=== PATIENT | female | born 1975 | race Caucasian/White ===

== ENCOUNTER → 2020-07-07 14:30 | Outpatient (BNVA) | payer SELFPAY | PROVIDERS: Visit Provider Obstetrics & Gynecology | DX: Z12.4 Encounter for screening for malignant neoplasm of cervix (principal); N93.9 Abnormal uterine and vaginal bleeding, unspecified | CPT/HCPCS: 83001; 84443; 85025; 88175 ==

== ENCOUNTER → 2020-07-10 15:32 | Outpatient (BNVA) | payer SELFPAY | PROVIDERS: Visit Provider Obstetrics & Gynecology | DX: D25.0 Submucous leiomyoma of uterus (principal); N93.9 Abnormal uterine and vaginal bleeding, unspecified; N85.2 Hypertrophy of uterus; N83.01 Follicular cyst of right ovary | CPT/HCPCS: 76830 ==

== ENCOUNTER → 2020-08-19 15:02 | Outpatient (BNVA) | payer SELFPAY | PROVIDERS: Visit Provider Obstetrics & Gynecology | DX: D64.9 Anemia, unspecified (principal); N93.9 Abnormal uterine and vaginal bleeding, unspecified; D25.1 Intramural leiomyoma of uterus; D25.0 Submucous leiomyoma of uterus; D25.2 Subserosal leiomyoma of uterus | CPT/HCPCS: 85025 ==

== ENCOUNTER → 2020-09-10 13:49 | Outpatient (BNVA) | payer SELFPAY | PROVIDERS: Referring Provider Obstetrics & Gynecology; Visit Provider Internal Medicine | DX: D50.9 Iron deficiency anemia, unspecified (principal); D25.1 Intramural leiomyoma of uterus; N93.9 Abnormal uterine and vaginal bleeding, unspecified | CPT/HCPCS: 82607; 82746; 83550; 85025 ==

== ENCOUNTER 2020-09-26 12:33 | Outpatient (RCR) | payer SELFPAY ==
[2020-09-12 12:28] VITALS: BMI 36.4
[2020-09-12] MEDS: ferric carboxy (IVPB) 750 MG in sodium chloride 0.9% (100 ml) 100 ML 345 MG IV (12:48)
[2020-09-12 12:58] VITALS: BP 134/80; PULSE 88; RESP 18; TEMP 36.9; O2SAT 100
[2020-09-19] MEDS: ferric carboxy (IVPB) 750 MG in sodium chloride 0.9% (100 ml) 100 ML 345 MG IV (13:12)
[2020-09-19 13:22] VITALS: BP 138/71; PULSE 81; RESP 18; TEMP 37; O2SAT 100
[2020-09-26 12:46] VITALS: BP 149/83; PULSE 83; RESP 18; TEMP 36.4; O2SAT 100
[2020-09-26] MEDS: ferric carboxy (IVPB) 750 MG in sodium chloride 0.9% (100 ml) 100 ML 345 MG IV (13:19)
== END 2020-09-28 23:59 | disposition home or self-care (01) ==
LOC: OPS 12:33
PROVIDERS: Visit Provider Internal Medicine
DX: D50.9 Iron deficiency anemia, unspecified (principal)
CPT/HCPCS: 96365; J1439

== ENCOUNTER → 2020-10-08 15:40 | Outpatient (BNVA) | payer SELFPAY | PROVIDERS: Visit Provider Internal Medicine | DX: D50.9 Iron deficiency anemia, unspecified (principal); D25.1 Intramural leiomyoma of uterus; D25.0 Submucous leiomyoma of uterus; D25.2 Subserosal leiomyoma of uterus; N93.9 Abnormal uterine and vaginal bleeding, unspecified | CPT/HCPCS: 83550; 85025 ==

== ENCOUNTER 2020-10-10 12:30 | Outpatient (CLI) | payer SELFPAY ==
[2020-10-13 12:47] VITALS: BMI 35.5
[2020-10-13 13:02] LABS: Add Urine Microscopic? YES; Bilirubin Urine Neg (Negative); Blood Urine Trace (Negative); Glucose Urine UA Norm (Normal); Ketones Urine Negative (Negative); Leukocyte Esterase Urine Negative (Negative); Nitrate Urine Negative (Negative); Protein Urine Neg (Negative); Urine Appearance Clear (CLEAR); Urine Color Yellow (Yellow); Urobilinogen Urine Norm (Negative); pH Urine 5 (5-7)
[2020-10-13 13:11] LABS: OR HCG Qualitative Urine Negative (Negative)
[2020-10-13 13:17] LABS: Anion Gap 11.2 (5-19); Blood Urea Nitrogen 10 mg/dL (6-20); Calcium 8.7 mg/dL (8.5-10.5); Carbon Dioxide 24 mmol/L (22-29); Chloride 105 mmol/L (98-107); Glucose 92 mg/dL (65-115); Osmolality Calculated 281 mOsm/kg (285-295); Potassium 4.2 mmol/L (3.5-5.1); Sodium 136 mmol/L (136-145)
--- NOTE | 2020-10-13 13:24 | PC.NURSE ---
Pt voiced concern with staying r/t lack of transportation and no phone. Communicated to patient and spouse that may be able to stay because of the circumstances. Neighbor is able to relay messages to pt and spouse. Pt gave permission for staff to leave message with neighbor if needed. Note placed on chart.
--- NOTE | 2020-10-13 13:33 | ANES.PREANE2 ---
Pre-Anesthetic Assessment Pre-Anesthetic Assessment: Height/Weight: Height 1.68 m Weight 99.79 kg Proposed Procedure: Operation Date: 10/16/20 09:00 Proposed Procedures p Total Vaginal Hysterectomy 46065 N64.9 D25.9 N93.9(Not Applicable) - Yugn Ray MD Was Beta Bogdan taken within 24 hours: N/A Was Clonidine taken within 24 hours: N/A Social: Social History: No alcohol and No tobacco Exam: Pre-Anes Outpt Exam: alert, oriented x 3, clear to auscultation bilaterally and regular rate & rhythm Airway: Submandibular: WNL Cervical ROM: WNL MP: 2 Dentition: False CV/HEM: CV/HEM: Anemia Metabolic: Metabolic: Morbid obesity Anesthetic Plan: ASA status: 3 Anesthesia: General Risk of > 500 ml blood loss (7ml/kg in children): No PFSH Anesthesia PFSH: Medical History Abnormal uterine bleeding (AUB) Surgical History H/O tubal ligation S/P cholecystectomy S/P tonsillectomy Family History Father Diabetes Heart disease Mother Hypertension Stroke Denies family history of Colon cancer Ovarian cancer Clotting disorder Breast cancer Anesthesia complication Bleeding disorder Uterine cancer Thyroid condition Social History Smoking and tobacco status: never smoked Alcohol intake: never History of recent travel: No Data Anesthesia CBC & Chem 7: 10/13/20 12:30 10/13/20 12:30 Other Labs: Laboratory Results - last 48 hr 10/13/20 10/13/20 10/13/20 12:21 12:30 12:30 Sodium 136 Potassium 4.2 Chloride 105 Carbon Dioxide 24 Anion Gap 11.2 BUN 10 Creatinine 0.5 GFR Calculation 134.0 H Glucose 92 Calculated Osmolality 281 L Calcium 8.7 Urine Color Yellow Urine Appearance Clear Urine pH 5 Ur Specific [place] 1.010 Urine Protein Neg Urine Glucose (UA) Norm Urine Ketones Negative Urine Blood Trace H Urine Nitrate Negative Urine Bilirubin Neg Urine Urobilinogen Norm Ur Leukocyte Esterase Negative Amorphous Sediment Not Reportable Urine HCG, Qual Negative Cardiac Studies: No Data to Display
[2020-10-13 13:53] LABS: Bacteria Urine TRACE /hpf; RBC Urine 0-4 /hpf (0-2); Squamous Epithelial Cell Urine 0-4 /hpf (0-5); WBC Urine 0-4 /hpf (0-5)
[2020-10-14 16:15] LABS: Coronavirus Test Green County Detected
== END 2020-10-10 15:00 | disposition home or self-care (01) ==
LOC: OPS 06-01 15:37
PROVIDERS: Visit Provider Obstetrics & Gynecology
DX: N93.9 Abnormal uterine and vaginal bleeding, unspecified (principal); D50.0 Iron deficiency anemia secondary to blood loss (chronic); D25.1 Intramural leiomyoma of uterus; D25.0 Submucous leiomyoma of uterus; D25.2 Subserosal leiomyoma of uterus; Z20.822 Contact with and (suspected) exposure to COVID-19
CPT/HCPCS: 80048; 81001; 84703; 86850; 86900; 87635

== ENCOUNTER 2020-11-08 01:28 | Observation (INO) | payer SELFPAY ==
[2020-11-08] VITALS (52 sets, daily range): BP systolic 105–159; BP diastolic 59–103; PULSE 64–123; RESP 4–42; TEMP 36.6–37.4; O2SAT 96–100; BMI 35.5
--- NOTE | 2020-11-08 01:40 | ECG_ITS ---
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 Measurements Intervals [place] Rate: 92 P: 50 SC: 172 QRS: 0 QRSD: 82 T: 9 QT: 350 QTc: 434 Interpretive Statements SINUS RHYTHM No previous ECG available for comparison Electronically Signed On 11-09-2020 15:34:25 CDT by Hola Starr M.D. [id number]
[2020-11-08 01:49] LABS: Basophils # 0.1 10^3/uL (0.0-0.1); Basophils % 0.4 %; Eosinophils # 0.2 10^3/uL (0.0-0.8); Eosinophils % 1.3 %; Hematocrit 36.3 % (37.0-47.0); Hemoglobin 11.4 g/dL (11.5-15.3); Lymphocytes # 1.9 10^3/uL (0.8-4.8); Lymphocytes % 13.1 %; Mean Corpuscular HGB Conc 31.4 g/dL (30.0-36.0); Mean Corpuscular Hemoglobin 29.3 pg (28.0-34.0); Mean Corpuscular Volume 93.3 fL (81-99); Mean Platelet Volume 10.4 fL (7.4-10.4); Monocytes # 0.7 10^3/uL (0.2-0.9); Monocytes % 5.1 %; Neutrophils # 11.36 10^3/uL (1.8-7.7); Neutrophils % 79.8 %; Nucleated Red Blood Cells % 0 %; Platelet Count 207 10^3/cmm (130-400); Red Blood Count 3.89 10^6/uL (4.1-5.3); Red Cell Distribution Width 18.3 % (12.1-15.1); White Blood Count 14.2 10^3/uL (4.0-10.0)
--- NOTE | 2020-11-08 02:15 | W.ED.FEMALGU ---
HPI - Female Genitourinary General: Chief complaint: Vaginal Bleeding Stated complaint: heavy vaginal bleeding Time Seen by Provider: 11/08/20 01:29 History of Present Illness: HPI Narrative: 45-year-old female with a history of uterine fibroid and heavy vaginal bleeding presents with brisk vaginal bleeding over the past 6 hours. She is passing clots, and not feeling well. She has some pelvic pain. No fever. No vomiting. Feels faint. MD elicited complaint: vaginal bleeding Pertinent past history: other Onset (ago): hour(s) (6) Location of symptoms: pelvis Female Urogenital Radiation: Non-Radiating Quality of pain: cramping Consistency: constant Vaginal discharge: none Vaginal bleeding: heavy, dark red and clots Relieving factors: none Associated symptoms: Reports abdominal pain, nausea and vaginal bleeding; Deny fevers/chills, headache(s) or vaginal discharge Treatment prior to arrival: none Sexual activity: Yes Patient : No (By history) Review of Systems Const: Reports: chills; Denies: fever(s) Eyes: Denies: change in vision ENMT: Denies: throat pain or epistaxis Card: Denies: chest pain or palpitations Resp: Denies: dyspnea, productive cough or wheezing GI: Reports: abdominal pain and nausea : Denies: vaginal discharge Musc: Reports: back pain (Lower) Neuro: Reports: dizziness; Denies: headache(s) or confusion PFSH ED PFSH: Medical History Abnormal uterine bleeding (AUB) Surgical History H/O tubal ligation S/P cholecystectomy S/P tonsillectomy Family History Father Diabetes Heart disease Mother Hypertension Stroke Denies family history of Colon cancer Ovarian cancer Clotting disorder Breast cancer Anesthesia complication Bleeding disorder Uterine cancer Thyroid condition Social History Smoking and tobacco status: never smoked Alcohol intake: never History of recent travel: No Physical Exam Const: GENERAL APPEARANCE: cooperative, in distress, ill appearing and diaphoretic NUTRITIONAL APPEARANCE: overweight ORIENTATION/CONSCIOUSNESS: Yes awake, Yes oriented to person, Yes oriented to place and Yes oriented to time HENMT: COMMON NORMALS: normocephalic HEAD & SCALP: normocephalic Eye: COMMON NORMALS: Equal, round and reactive pupils present and EOMs intact bilaterally PUPIL: Yes Equal, round and reactive pupils present Chest: COMMONS NORMALS: normal inspection of the chest Resp: COMMON NORMALS: normal respiratory effort, No use of accessory muscles and clear to auscultation bilaterally AUSCULTATION: clear to auscultation bilaterally Cardio: COMMON NORMALS: regular rhythm RATE: tachycardic RHYTHM: regular rhythm HEART SOUNDS: Murmur heart sound present (flow) : EXTERNAL FEMALE EXAM: Yes normal appearance of the urethra SPECULUM EXAM - VAGINA: No erythematous, Yes vaginal bleeding and No tissue present in vagina SPECULUM EXAM - CERVIX: Yes Cervical os closed and Yes Cervical bleeding (brisk) OB/EXTERNAL & SPECULUM: vaginal bleeding; no tissue noted in vagina OTHER: Palpable mass in the anterior pelvic wall Neuro: SENSORIUM/ORIENTATION: Yes oriented to person, Yes oriented to place and Yes oriented to time Course Consultations: Consultation #1: Guillermo Time: 02:10 Vital Signs: Vital signs: Vital Signs Temperature 98.5 F 11/08/20 01:48 Pulse Rate 104 H 11/08/20 03:30 Respiratory Rate 18 11/08/20 02:30 Blood Pressure 138/103 11/08/20 03:30 Pulse Oximetry 98 11/08/20 03:30 MDM - Female MDM Narrative: Medical decision making narrative: 45-year-old female with a history of heavy vaginal bleeding and uterine fibroids. She presents with a heart rate of 130, pale, and somewhat diaphoretic. She is ill-appearing. He has tenderness in her pelvis diffusely. Speculum exam reveals mildly brisk cervical bleeding. 1 unit of uncrossed match blood is ordered and infused along with 2 L of saline. Heart rate now down to 93. Blood pressure 143/90. Her color is improved. She continues to bleed. We consulted gynecology. The plan is oral Provera plus tranexamic acid IV infusion, and repeat hemoglobin in 2 hours. The rest of her labs are pending. 0330: Patient received tranexamic acid and Provera. She continues to bleed vaginally. Old looking blood with clots. She has had about 500 mL estimated total out, quantified by weighing checks pads. She has had about 1700 mL of IV fluid, and 1 unit of packed red cells. Her heart rate remains in the 100s. Blood pressure 130s over 90s. She feels better. Repeat hemoglobin is stable despite the above. She will go to the ICU for close observation, and repeat hemoglobin in a couple of hours. Lab Data: Labs: Lab Results 11/08/20 11/08/20 11/08/20 Range/Units 01:40 01:40 01:40 WBC 14.2 H (4.0-10.0) 10^3/ uL RBC 3.89 L (4.1-5.3) 10^6/u L Hgb 11.4 L (11.5-15.3) g/dL Hct 36.3 L (37.0-47.0) % MCV 93.3 (81-99) fL MCH 29.3 (28.0-34.0) pg MCHC 31.4 (30.0-36.0) g/dL RDW 18.3 H (12.1-15.1) % Plt Count 207 (130-400) 10^3/c mm MPV 10.4 (7.4-10.4) fL Neut % (Auto) 79.8 % Lymph % (Auto) 13.1 % [place] % (Auto) 5.1 % Eos % (Auto) 1.3 % Baso % (Auto) 0.4 % Neut # (Auto) 11.36 H (1.8-7.7) 10^3/u L Lymph # (Auto) 1.9 (0.8-4.8) 10^3/u L [place] # (Auto) 0.7 (0.2-0.9) 10^3/u L Eos # (Auto) 0.2 (0.0-0.8) 10^3/u L Baso # (Auto) 0.1 (0.0-0.1) 10^3/u L Nucleated RBC % (a uto) 0 % Nucleated RBCs # 0.0 /100WBC PT 14.20 (12.1-14.9) SECO NDS INR 1.07 (0.8-1.2) APTT 28.4 (23.9-36.7) SECO NDS Sodium 137 (136-145) mmol/L Potassium 4.0 (3.5-5.1) mmol/L Chloride 105 (98-107) mmol/L Carbon Dioxide 21 L (22-29) mmol/L Anion Gap 15.0 (5-19) BUN 8 (6-20) mg/dL Creatinine 0.6 (0.5-0.9) mg/dL GFR Calculation 108.6 (90-130) mL/min Glucose 155 H (65-115) mg/dL Calculated Osmolal ity 285 (285-295) mOsm/k g Lactate (0.5-2.2) mmol/L Calcium 8.2 L (8.5-10.5) mg/dL Total Bilirubin 0.2 (0.15-1.2) mg/dL AST 20 (0-32) U/L ALT 22 (0-33) U/L Alkaline Phosphata se 49 (35-105) IU/L C-Reactive Protein 0.8 (0.0-4.9) mg/L Total Protein 6.4 L (6.6-8.7) g/dL Albumin 3.6 (3.5-5.2) g/dL Globulin 2.8 (1.3-4.6) g/dL HCG, Qual (Negative) Blood Type Rho(D) Type Antibody Screen Crossmatch 11/08/20 11/08/20 11/08/20 Range/Units 01:40 01:40 01:40 WBC (4.0-10.0) 10^3/ uL RBC (4.1-5.3) 10^6/u L Hgb (11.5-15.3) g/dL Hct (37.0-47.0) % MCV (81-99) fL MCH (28.0-34.0) pg MCHC (30.0-36.0) g/dL RDW (12.1-15.1) % Plt Count (130-400) 10^3/c mm MPV (7.4-10.4) fL Neut % (Auto) % Lymph % (Auto) % [place] % (Auto) % Eos % (Auto) % Baso % (Auto) % Neut # (Auto) (1.8-7.7) 10^3/u L Lymph # (Auto) (0.8-4.8) 10^3/u L [place] # (Auto) (0.2-0.9) 10^3/u L Eos # (Auto) (0.0-0.8) 10^3/u L Baso # (Auto) (0.0-0.1) 10^3/u L Nucleated RBC % (a uto) % Nucleated RBCs # /100WBC PT (12.1-14.9) SECO NDS INR (0.8-1.2) APTT (23.9-36.7) SECO NDS Sodium (136-145) mmol/L Potassium (3.5-5.1) mmol/L Chloride (98-107) mmol/L Carbon Dioxide (22-29) mmol/L Anion Gap (5-19) BUN (6-20) mg/dL Creatinine (0.5-0.9) mg/dL GFR Calculation (90-130) mL/min Glucose (65-115) mg/dL Calculated Osmolal ity (285-295) mOsm/k g Lactate 3.2 H (0.5-2.2) mmol/L Calcium (8.5-10.5) mg/dL Total Bilirubin (0.15-1.2) mg/dL AST (0-32) U/L ALT (0-33) U/L Alkaline Phosphata se (35-105) IU/L C-Reactive Protein (0.0-4.9) mg/L Total Protein (6.6-8.7) g/dL Albumin (3.5-5.2) g/dL Globulin (1.3-4.6) g/dL HCG, Qual Negative (Negative) Blood Type A Positive Rho(D) Type Positive / 4+ Antibody Screen Negative Crossmatch See Detail 11/08/20 Range/Units 03:19 WBC 13.1 H (4.0-10.0) 10^3/ uL RBC 3.96 L (4.1-5.3) 10^6/u L Hgb 11.4 L (11.5-15.3) g/dL Hct 36.2 L (37.0-47.0) % MCV 91.4 (81-99) fL MCH 28.8 (28.0-34.0) pg MCHC 31.5 (30.0-36.0) g/dL RDW 17.5 H (12.1-15.1) % Plt Count 184 (130-400) 10^3/c mm MPV 9.9 (7.4-10.4) fL Neut % (Auto) 86.1 % Lymph % (Auto) 9.9 % [place] % (Auto) 3.4 % Eos % (Auto) 0.2 % Baso % (Auto) 0.2 % Neut # (Auto) 11.26 H (1.8-7.7) 10^3/u L Lymph # (Auto) 1.3 (0.8-4.8) 10^3/u L [place] # (Auto) 0.5 (0.2-0.9) 10^3/u L Eos # (Auto) 0.0 (0.0-0.8) 10^3/u L Baso # (Auto) 0.0 (0.0-0.1) 10^3/u L Nucleated RBC % (a uto) 0 % Nucleated RBCs # 0.0 /100WBC PT (12.1-14.9) SECO NDS INR (0.8-1.2) APTT (23.9-36.7) SECO NDS Sodium (136-145) mmol/L Potassium (3.5-5.1) mmol/L Chloride (98-107) mmol/L Carbon Dioxide (22-29) mmol/L Anion Gap (5-19) BUN (6-20) mg/dL Creatinine (0.5-0.9) mg/dL GFR Calculation (90-130) mL/min Glucose (65-115) mg/dL Calculated Osmolal ity (285-295) mOsm/k g Lactate (0.5-2.2) mmol/L Calcium (8.5-10.5) mg/dL Total Bilirubin (0.15-1.2) mg/dL AST (0-32) U/L ALT (0-33) U/L Alkaline Phosphata se (35-105) IU/L C-Reactive Protein (0.0-4.9) mg/L Total Protein (6.6-8.7) g/dL Albumin (3.5-5.2) g/dL Globulin (1.3-4.6) g/dL HCG, Qual (Negative) Blood Type Rho(D) Type Antibody Screen Crossmatch Critical Care Time Critical Care Time: Critical Care Time: Yes Total Critical Care Time: 40 Attestation: This case had a high probability of a clinically significant, sudden, or life threatening deterioration of this patient's condition which required my full and direct attention, intervention and personal management. 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
[2020-11-08 02:17] LABS: INR 1.07 (0.8-1.2)
[2020-11-08 02:18] LABS: Partial Thromboplastin Time 28.4 SECONDS (23.9-36.7)
[2020-11-08] MEDS: medroxyprogesterone 2.5 mg Tablet 10 MG PO (02:20)
[2020-11-08] MEDS: sodium chloride 0.9% 1,000 ML 999 ML IV ×3 (02:22→15:58)
[2020-11-08 02:24] LABS: HCG, Serum Qual Negative (Negative)
[2020-11-08 02:27] LABS: Alanine Aminotransferase 22 U/L (0-33); Albumin Level 3.6 g/dL (3.5-5.2); Alkaline Phosphatase 49 IU/L (35-105); Aspartate Amino Transferase 20 U/L (0-32); Blood Urea Nitrogen 8 mg/dL (6-20); C Reactive Protein 0.8 mg/L (0.0-4.9); Calcium 8.2 mg/dL (8.5-10.5); Carbon Dioxide 21 mmol/L (22-29); Chloride 105 mmol/L (98-107); Globulin 2.8 g/dL (1.3-4.6); Glomerular Filtration Rate 108.6 mL/min (90-130); Glucose 155 mg/dL (65-115); Osmolality Calculated 285 mOsm/kg (285-295); Sodium 137 mmol/L (136-145); Total Bilirubin 0.2 mg/dL (0.15-1.2); Total Protein 6.4 g/dL (6.6-8.7)
[2020-11-08 02:28] LABS: Lactate (Lactic Acid level) 3.2 mmol/L (0.5-2.2)
[2020-11-08 03:25] LABS: Basophils % 0.2 %; Eosinophils % 0.2 %; Hematocrit 36.2 % (37.0-47.0); Hemoglobin 11.4 g/dL (11.5-15.3); Lymphocytes # 1.3 10^3/uL (0.8-4.8); Lymphocytes % 9.9 %; Mean Corpuscular HGB Conc 31.5 g/dL (30.0-36.0); Mean Corpuscular Hemoglobin 28.8 pg (28.0-34.0); Mean Corpuscular Volume 91.4 fL (81-99); Mean Platelet Volume 9.9 fL (7.4-10.4); Monocytes # 0.5 10^3/uL (0.2-0.9); Monocytes % 3.4 %; Neutrophils # 11.26 10^3/uL (1.8-7.7); Neutrophils % 86.1 %; Nucleated Red Blood Cells % 0 %; Platelet Count 184 10^3/cmm (130-400); Red Blood Count 3.96 10^6/uL (4.1-5.3); Red Cell Distribution Width 17.5 % (12.1-15.1); White Blood Count 13.1 10^3/uL (4.0-10.0)
[2020-11-08] MEDS: sodium chloride 0.9% 1,000 ML 150 ML IV ×2 (04:47→10:03)
[2020-11-08 05:41] LABS: Basophils % 0.4 %; Eosinophils % 0.1 %; Hematocrit 34.9 % (37.0-47.0); Hemoglobin 11.1 g/dL (11.5-15.3); Lymphocytes # 1.4 10^3/uL (0.8-4.8); Mean Corpuscular HGB Conc 31.8 g/dL (30.0-36.0); Mean Corpuscular Hemoglobin 29.3 pg (28.0-34.0); Mean Corpuscular Volume 92.1 fL (81-99); Mean Platelet Volume 10.7 fL (7.4-10.4); Monocytes # 0.4 10^3/uL (0.2-0.9); Monocytes % 3.4 %; Neutrophils # 8.79 10^3/uL (1.8-7.7); Neutrophils % 82.7 %; Nucleated Red Blood Cells % 0 %; Platelet Count 191 10^3/cmm (130-400); Red Blood Count 3.79 10^6/uL (4.1-5.3); Red Cell Distribution Width 17.6 % (12.1-15.1); White Blood Count 10.6 10^3/uL (4.0-10.0)
--- NOTE | 2020-11-08 09:43 | PC.NURSE ---
up to bedside commode voided 400 urine noted bloody but no clots noted at this time had soft bm noted . Was very weak when up blood pressure ok at this time
--- NOTE | 2020-11-08 11:32 | PC.NURSE ---
Dr banda and vag exam done at this time
--- NOTE | 2020-11-08 11:34 | PM.HP ---
Providers/Chief Complaint Admitting Physician: Cindi Koehler MD Chief Complaint: heavy vaginal bleeding History of Present Illness Pia Zamudio is a 45 year old female with known fibroids and anemia who presents to the ER with complaints of heavy vaginal bleeding. She was scheduled for a total vaginal hysterectomy, but was Covid positive and her surgery was cancelled and rescheduled. She has been very anemic in the past and has received iron infusions to get her ready for surgery. Today she is bleeding extremely heavily. She is pale and light headed. She is laying prone in the bed. When she stands up, she becomes dizzy and the blood flows freely. Her most recent ultrasound showed a 14 week uterus with many fibroids. She is not currently on anything to prevent her from bleeding. She does have a remote history of DVT. The patient has received a blood transfusion, a single dose of provera 10 mg PO and one IV dose of tranexamic acid early this morning. Review of Systems General: Reports: 10 or more systems reviewed and unremarkable except in HPI and below Medications/Allergies Home Medications Medication Instructions Recorded Confirmed Last Taken Type cinnamon bark [Cinnamon] 500 mg PO DAILY PRN 11/08/20 11/08/20 Unknown History ibuprofen 400 mg PO Q8H PRN 11/08/20 11/08/20 Unknown History multivitamin 1 tab PO DAILY 11/08/20 11/08/20 Unknown History Allergies Allergy/AdvReac Type Severity Reaction Status Date / Time No Known Allergies Allergy Verified 11/08/20 01:54 PFSH Acute PFSH: Medical History Abnormal uterine bleeding (AUB) Surgical History H/O tubal ligation S/P cholecystectomy S/P tonsillectomy Family History Father Diabetes Heart disease Mother Hypertension Stroke Denies family history of Colon cancer Ovarian cancer Clotting disorder Breast cancer Anesthesia complication Bleeding disorder Uterine cancer Thyroid condition Social History Smoking and tobacco status: never smoked Alcohol intake: never History of recent travel: No Vitals/I&O/Wt Last Vital Signs Temp 99.4 F 11/08/20 05:00 Pulse 92 11/08/20 11:00 Resp 17 11/08/20 11:00 BP 133/84 11/08/20 11:00 Pulse Ox 99 11/08/20 11:00 11/07/20 11/08/20 11/08/20 22:59 06:59 14:59 Intake Total 1350 / 1350 790 / 790 Output Total 1180 / 1180 1340 / 1340 Balance 170 / 170 -550 / -550 Weight last 48 hrs Weight 223 lb 11.2 oz Weight 220 lb Physical Exam Const: GENERAL APPEARANCE: ill appearing and appears older than stated age NUTRITIONAL APPEARANCE: obese ORIENTATION/CONSCIOUSNESS: Yes awake, Yes oriented to person, Yes oriented to place and Yes oriented to time Resp: COMMON NORMALS: normal respiratory effort and No retractions EFFORT & INSPECTION: Yes able to speak in complete sentences GI: COMMON NORMALS: Soft to palpation and non-tender : COMMON NORMALS: Yes normal external appearance, Yes normal appearance of the vagina and Yes normal appearance of the cervix SPECULUM EXAM - VAGINA: Yes vaginal bleeding Amount: large/heavy and with clots SPECULUM EXAM - CERVIX: Yes Cervical os closed BIMANUAL EXAM - VAGINA & UTERUS: Yes other (limited by body habitus) Extremity: COMMON NORMALS: normal to inspection, full ROM and no clubbing, cyanosis or edema Psych: COMMON NORMALS: mental status grossly normal, Normal thought process present, cooperative, normal affect and speech normal ATTITUDE: Yes calm ACTIVITY/MOTOR BEHAVIOR: Yes appropriate eye contact SPEECH: Yes normal speech Skin: GENERAL SKIN EXAM: pallor HAIR: normal Data : 11/08/20 05:20 11/08/20 01:40 A&P Assessment and plan (1) Abnormal uterine bleeding: The patient reports that her bleeding had improved and now, she has started bleeding heavily again. plan to give two doses of tranexamic acid IV and a dose of depo provera IM to see if the bleeding can be controlled. If not, I will have to perform a D&C to control the bleeding. The plan is to get her bleeding under control in order for her to have her hysterectomy next month, as planned. Status: Acute (2) Uterine hemorrhage: Status: Acute (3) Uterine leiomyoma: Status: Acute Qualifiers: Uterine leiomyoma location: intramural, submucous, and subserous Qualified Code(s): D25.1 - Intramural leiomyoma of uterus; D25.0 - Submucous leiomyoma of uterus; D25.2 - Subserosal leiomyoma of uterus Attestations Medical Necessity Statement*: I anticipate that the patient will only be here one midnight as she was admitted early this morning. Time Spent in Patient Care: Greater than 35 minutes (>than 50% of time spent in counselling and/or direct pt care on unit). Coding Level of Care Code Acute [facility] Abnormal uterine bleeding N93.9 Uterine hemorrhage N93.9 Uterine leiomyoma D25.1; D25.0; D25.2 Uterine leiomyoma location: intramural, submucous, and subserous
[2020-11-08] MEDS: medroxyprogesterone 150 mg/ml SDV 1 mL IM (11:56)
--- NOTE | 2020-11-08 12:45 | PC.NURSE ---
voided large amt of urine noted bright red blood content to urine .. remains weak and pale at this time ...
[2020-11-08 15:17] LABS: Hematocrit 31.8 % (37.0-47.0); Hemoglobin 10.1 g/dL (11.5-15.3)
--- NOTE | 2020-11-08 15:37 | P.PN_ITS ---
Subjective Subjective: Interval history: The patient has received two doses of tranexamic acid and 150 mg of depo provera. Her bleeding is still profuse. She gushes each time that she gets up to use the bathroom. She remains dizzy with ambulation and needs nurse assistance. She also becomes tachycardic. I have spoken with the patient and her and I will take her for a dilation and curettage. They agree with the plan Medications: Reviewed: Yes Vitals/I&O/Wt Last Vital Signs Temp 99.4 F 11/08/20 05:00 Pulse 94 11/08/20 15:11 Resp 15 11/08/20 14:00 BP 106/77 11/08/20 14:00 Pulse Ox 99 11/08/20 14:00 11/08/20 11/08/20 11/08/20 06:59 14:59 22:59 Intake Total 1350 / 1350 1010 / 1010 Output Total 1180 / 1180 3440 / 3440 135 / 3575 Balance 170 / 170 -2430 / -2430 -135 / -2565 Weight last 48 hrs Weight 223 lb 11.2 oz Weight 220 lb Physical Exam Const: COMMON NORMALS: average body habitus and patient oriented x3 GENERAL APPEARANCE: cooperative, lethargic, ill appearing and appears older than stated age ORIENTATION/CONSCIOUSNESS: Yes awake, Yes oriented to person, Yes oriented to place, Yes oriented to time and Yes lethargic Neck/C-Spine: COMMON NORMALS: supple GENERAL: Yes normal visual inspection Resp: COMMON NORMALS: normal respiratory effort, No retractions and clear to auscultation bilaterally AUSCULTATION: clear to auscultation bilaterally Cardio: COMMON NORMALS: regular rate and regular rhythm RATE: regular rate RHYTHM: regular rhythm GI: COMMON NORMALS: Soft to palpation and non-tender INSPECTION: Yes normal to inspection PALPATION: Yes Soft to palpation : COMMON NORMALS: Yes normal external appearance, Yes normal appearance of the vagina and Yes normal appearance of the cervix SPECULUM EXAM - VAGINA: Yes vaginal bleeding OB/EXTERNAL & SPECULUM: vaginal bleeding Extremity: COMMON NORMALS: no clubbing, cyanosis or edema Neuro: COMMON NORMALS: patient oriented x3 SENSORIUM/ORIENTATION: Yes oriented to person, Yes oriented to place, Yes oriented to time and Yes lethargic Data : 11/08/20 15:09 11/08/20 01:40 Attestations Medical Necessity Statement*: The patient has been admitted as OPO Coding Level of Care Code Acute Energy Conservation Specialist for Burton Holcomb
--- NOTE | 2020-11-08 15:42 | ANES.PREANE2 ---
Pre-Anesthetic Assessment Pre-Anesthetic Assessment: Height/Weight: Height 1.68 m Weight 101.469 kg Temp Pulse Resp BP Pulse Ox 99.4 F 94 15 106/77 99 11/08/20 05:00 11/08/20 15:11 11/08/20 14:00 11/08/20 14:00 11/08/20 14:00 Preop Diagnosis: D & C Proposed Procedure: Operation Date: 11/08/20 16:00 Proposed Procedures p Dilation And Curettage (D&C)(Not Applicable) - Cindi Koehler MD Familial anesthetic complications: None Was Beta Bogdan taken within 24 hours: N/A Was Clonidine taken within 24 hours: N/A Last intake: NPO > 8 hrs, but ice chips at [id number] Social: Social History: No alcohol and No tobacco Exam: Pre-Anes Outpt Exam: alert, oriented x 3, clear to auscultation bilaterally and regular rate & rhythm Airway: Cervical ROM: WNL MP: 4 Dentition: False CV/HEM: CV/HEM: Anemia Metabolic: Metabolic: Morbid obesity Anesthetic Plan: ASA status: 2E Anesthesia: MAC Risk of > 500 ml blood loss (7ml/kg in children): No Other Pertinent Information: possible hysterectomy Meds/Allergies Current Medications: Current Medications Generic Name Dose Route Start Last Admin Trade Name Freq PRN Reason Stop Dose Admin Sodium Chloride 1,000 mls @ 150 m ls/hr 11/08/20 04:29 11/08/20 10:03 Sodium Chloride 0.9% IV 150 mls/hr .[id number] JUANCARLOS Administration PFSH Anesthesia PFSH: Medical History Abnormal uterine bleeding (AUB) Surgical History H/O tubal ligation S/P cholecystectomy S/P tonsillectomy Family History Father Diabetes Heart disease Mother Hypertension Stroke Denies family history of Colon cancer Ovarian cancer Clotting disorder Breast cancer Anesthesia complication Bleeding disorder Uterine cancer Thyroid condition Social History Smoking and tobacco status: never smoked Alcohol intake: never History of recent travel: No Data Anesthesia CBC & Chem 7: 11/08/20 15:09 11/08/20 01:40 Other Labs: Laboratory Results - last 48 hr 11/08/20 11/08/20 11/08/20 01:40 01:40 01:40 WBC 14.2 H RBC 3.89 L Hgb 11.4 L Hct 36.3 L MCV 93.3 MCH 29.3 MCHC 31.4 RDW 18.3 H Plt Count 207 MPV 10.4 Neut % (Auto) 79.8 Lymph % (Auto) 13.1 [place] % (Auto) 5.1 Eos % (Auto) 1.3 Baso % (Auto) 0.4 Neut # (Auto) 11.36 H Lymph # (Auto) 1.9 [place] # (Auto) 0.7 Eos # (Auto) 0.2 Baso # (Auto) 0.1 Nucleated RBC % (auto) 0 Nucleated RBCs # 0.0 PT 14.20 INR 1.07 APTT 28.4 Sodium 137 Potassium 4.0 Chloride 105 Carbon Dioxide 21 L Anion Gap 15.0 BUN 8 Creatinine 0.6 GFR Calculation 108.6 Glucose 155 H Calculated Osmolality 285 Lactate Calcium 8.2 L Total Bilirubin 0.2 AST 20 ALT 22 Alkaline Phosphatase 49 C-Reactive Protein 0.8 Total Protein 6.4 L Albumin 3.6 Globulin 2.8 HCG, Qual Blood Type Rho(D) Type Antibody Screen Crossmatch 11/08/20 11/08/20 11/08/20 01:40 01:40 01:40 WBC RBC Hgb Hct MCV MCH MCHC RDW Plt Count MPV Neut % (Auto) Lymph % (Auto) [place] % (Auto) Eos % (Auto) Baso % (Auto) Neut # (Auto) Lymph # (Auto) [place] # (Auto) Eos # (Auto) Baso # (Auto) Nucleated RBC % (auto) Nucleated RBCs # PT INR APTT Sodium Potassium Chloride Carbon Dioxide Anion Gap BUN Creatinine GFR Calculation Glucose Calculated Osmolality Lactate 3.2 H Calcium Total Bilirubin AST ALT Alkaline Phosphatase C-Reactive Protein Total Protein Albumin Globulin HCG, Qual Negative Blood Type A Positive Rho(D) Type Positive / 4+ Antibody Screen Negative Crossmatch See Detail 11/08/20 11/08/20 11/08/20 03:19 05:20 15:09 WBC 13.1 H 10.6 H RBC 3.96 L 3.79 L Hgb 11.4 L 11.1 L 10.1 L Hct 36.2 L 34.9 L 31.8 L MCV 91.4 92.1 MCH 28.8 29.3 MCHC 31.5 31.8 RDW 17.5 H 17.6 H Plt Count 184 191 MPV 9.9 10.7 H Neut % (Auto) 86.1 82.7 Lymph % (Auto) 9.9 13.0 [place] % (Auto) 3.4 3.4 Eos % (Auto) 0.2 0.1 Baso % (Auto) 0.2 0.4 Neut # (Auto) 11.26 H 8.79 H Lymph # (Auto) 1.3 1.4 [place] # (Auto) 0.5 0.4 Eos # (Auto) 0.0 0.0 Baso # (Auto) 0.0 0.0 Nucleated RBC % (auto) 0 0 Nucleated RBCs # 0.0 0.0 PT INR APTT Sodium Potassium Chloride Carbon Dioxide Anion Gap BUN Creatinine GFR Calculation Glucose Calculated Osmolality Lactate Calcium Total Bilirubin AST ALT Alkaline Phosphatase C-Reactive Protein Total Protein Albumin Globulin HCG, Qual Blood Type Rho(D) Type Antibody Screen Crossmatch Cardiac Studies: No Data to Display
--- NOTE | 2020-11-08 16:04 | PC.NURSE ---
Dr called about H&H and continued bleeding Dr here preop down and prep for surgery ivf started and antibiotic given
--- NOTE | 2020-11-08 17:08 | P.OP_ITS ---
Operative Report Date of procedure: November 08, 2020 Pre-op Diagnosis: menorrhagia Post-op diagnosis: same Post-op Findings: 12 week sized uterus filled with tissue, clots and blood Procedure Done: fractional dilation and curettage Specimens removed/disposition: endometrial curettings Pathology: other Surgeon: Cindi Koehler Anesthesia: General Estimated blood loss (mL): 50 IV fluids (mL): 800 Urine output (mL): 100 Complications: none Condition: stable Disposition: ICU Procedure: The patient was taken to the operating room where general anesthesia was administered and found to be adequate. She was prepped and draped in the normal sterile fashion in the dorsal lithotomy position in [facility]. The bladder was drained with a red rubber catheter. A single-tooth tenaculum was placed on the anterior lip of the cervix. The uterus was sounded to 12 cm. Using a sharp curette the endometrial lining was curetted until there was a gritty texture. Lots of tissue and debris were removed until there was scant amount of bleeding. I waited approximately 5 minutes and then placed the curette back into the endometrial cavity and there was only a small amount of bleeding. All instruments were removed. The patient tolerated the procedure well. Sponge, lap and needle counts were correct x3 and she was taken to the ICU in stable condition.
--- NOTE | 2020-11-08 17:15 | PM.DCS ---
Discharge Providers Date of Admission: 11/08/20 03:35 Date of Discharge: November 08, 2020 Attending Provider at Admission: Cindi Koehler MD Attending Provider at Discharge: Cindi Koehler MD Diagnoses at Discharge Discharge Diagnosis (1) Abnormal uterine bleeding: Status: Acute (2) Uterine hemorrhage: Status: Acute (3) Uterine leiomyoma: Status: Acute Qualifiers: Uterine leiomyoma location: intramural, submucous, and subserous Qualified Code(s): D25.1 - Intramural leiomyoma of uterus; D25.0 - Submucous leiomyoma of uterus; D25.2 - Subserosal leiomyoma of uterus Reason for Visit Reason for Visit: heavy vaginal bleeding Hospital Course Hospital Course The patient was admitted for symptommatic heavy vaginal bleeding. She was ill appearing with tachycardia in the 130's and orthostatic changes. At this time, she was having brisk bleeding from the cervix. She received a unit of blood and her heart rate normalized. She was given 1000 mg of tranexamic acid IV and 10 mg of provera PO. she was admitted to the ICU. Initially, she was doing well and then her bleeding resumed. She was given two additional doses of tranexamic acid and depo provera 150 mg but the bleeding was still brisk. The decision was made to take her to the OR for a dilation and curettage. She had surgery where a lot of clot and tissue was removed. Her bleeding was small post procedure. She ambulated and was able to void post procedure. She strongly wanted discharge. She was discharged home in stable condition. She will continue to take provera 5 mg daily and follow up with Dr. Ray. She has surgery scheduled in less than a month. She will call or return if symptoms return or if she begins feeling ill again. Discharge Data Data Completed and Pending: Pending at discharge Category Date Time Status Pathology: Surgic al [PTH] Routine Pth 11/08/20 16:49 Ordered Labs from last 24 hours 11/08/20 11/08/20 11/08/20 15:09 05:20 03:19 WBC 10.6 H 13.1 H RBC 3.79 L 3.96 L Hgb 10.1 L 11.1 L 11.4 L Hct 31.8 L 34.9 L 36.2 L MCV 92.1 91.4 MCH 29.3 28.8 MCHC 31.8 31.5 RDW 17.6 H 17.5 H Plt Count 191 184 MPV 10.7 H 9.9 Neut % (Auto) 82.7 86.1 Lymph % (Auto) 13.0 9.9 [place] % (Auto) 3.4 3.4 Eos % (Auto) 0.1 0.2 Baso % (Auto) 0.4 0.2 Neut # (Auto) 8.79 H 11.26 H Lymph # (Auto) 1.4 1.3 [place] # (Auto) 0.4 0.5 Eos # (Auto) 0.0 0.0 Baso # (Auto) 0.0 0.0 Nucleated RBC % (a uto) 0 0 Nucleated RBCs # 0.0 0.0 PT INR APTT Sodium Potassium Chloride Carbon Dioxide Anion Gap BUN Creatinine GFR Calculation Glucose Calculated Osmolal ity Lactate Calcium Total Bilirubin AST ALT Alkaline Phosphata se C-Reactive Protein Total Protein Albumin Globulin HCG, Qual Blood Type Rho(D) Type Antibody Screen Crossmatch 11/08/20 11/08/20 11/08/20 01:40 01:40 01:40 WBC RBC Hgb Hct MCV MCH MCHC RDW Plt Count MPV Neut % (Auto) Lymph % (Auto) [place] % (Auto) Eos % (Auto) Baso % (Auto) Neut # (Auto) Lymph # (Auto) [place] # (Auto) Eos # (Auto) Baso # (Auto) Nucleated RBC % (a uto) Nucleated RBCs # PT INR APTT Sodium Potassium Chloride Carbon Dioxide Anion Gap BUN Creatinine GFR Calculation Glucose Calculated Osmolal ity Lactate 3.2 H Calcium Total Bilirubin AST ALT Alkaline Phosphata se C-Reactive Protein Total Protein Albumin Globulin HCG, Qual Negative Blood Type A Positive Rho(D) Type Positive / 4+ Antibody Screen Negative Crossmatch See Detail 11/08/20 11/08/20 11/08/20 01:40 01:40 01:40 WBC 14.2 H RBC 3.89 L Hgb 11.4 L Hct 36.3 L MCV 93.3 MCH 29.3 MCHC 31.4 RDW 18.3 H Plt Count 207 MPV 10.4 Neut % (Auto) 79.8 Lymph % (Auto) 13.1 [place] % (Auto) 5.1 Eos % (Auto) 1.3 Baso % (Auto) 0.4 Neut # (Auto) 11.36 H Lymph # (Auto) 1.9 [place] # (Auto) 0.7 Eos # (Auto) 0.2 Baso # (Auto) 0.1 Nucleated RBC % (a uto) 0 Nucleated RBCs # 0.0 PT 14.20 INR 1.07 APTT 28.4 Sodium 137 Potassium 4.0 Chloride 105 Carbon Dioxide 21 L Anion Gap 15.0 BUN 8 Creatinine 0.6 GFR Calculation 108.6 Glucose 155 H Calculated Osmolal ity 285 Lactate Calcium 8.2 L Total Bilirubin 0.2 AST 20 ALT 22 Alkaline Phosphata se 49 C-Reactive Protein 0.8 Total Protein 6.4 L Albumin 3.6 Globulin 2.8 HCG, Qual Blood Type Rho(D) Type Antibody Screen Crossmatch Vitals: Last Vital Signs Temp 99.4 F 11/08/20 05:00 Pulse 87 11/08/20 16:00 Resp 27 H 11/08/20 16:00 BP 130/82 11/08/20 16:00 Pulse Ox 99 11/08/20 16:00 Discharge Plan Discharge Patient Disposition: Home Condition: Stable Prescriptions: New Provera 10 mg tablet 5 mg PO DAILY Qty: 30 RF: 0 Continued ibuprofen 400 mg Tablet 400 mg PO Q8H PRN (Reason: Pain) RF: 0 multivitamin Tablet 1 tab PO DAILY RF: 0 Cinnamon 500 mg Capsule 500 mg PO DAILY PRN (Reason: Blood sugar) RF: 0 Discharge Orders: Discharge Order (Routine); Ordered 11/08/20 Ordered By: Cindi Koehler Discharge Attestations Time Spent in Discharge Care*: less than 30 min Quality Metrics Clinical Quality Measures During this hospital stay, did patient experience: None Coding Level of Care Code Acute Chg [facility] note Diagnoses Abnormal uterine bleeding N93.9 Uterine hemorrhage N93.9 Uterine leiomyoma D25.1; D25.0; D25.2 Uterine leiomyoma location: intramural, submucous, and subserous
[2020-11-08] MEDS: ibuprofen 200 mg Tablet 400 MG PO (18:01)
--- NOTE | 2020-11-08 18:52 | PC.NURSE ---
Patient up to BSC, 250 ml red colored urine, moderate bowel movement, kristine pad with small amount red blood. Patient up with stand by assist , denies any dizziness, back to bed with zero difficulties, call light in reach.
--- NOTE | 2020-11-08 21:32 | PC.NURSE ---
2030 Pt given discharge instructions educated on what to watch for fever, bleeding, or discharge. Pt verbalized understanding given rx to fill in am. verbalized understanding taken by wheelchair to private vehicle VSS
== END 2020-11-08 20:30 | disposition home or self-care (01) ==
LOC: ER 03:35 → ICU 12:12
PROVIDERS: Admitting Provider Obstetrics & Gynecology; Emergency Provider Emergency Medicine; Visit Provider Obstetrics & Gynecology
PROC: (CPT 58120; principal; 2020-11-08 16:00)
DX: N92.0 Excessive and frequent menstruation with regular cycle (principal); N93.9 Abnormal uterine and vaginal bleeding, unspecified; D25.1 Intramural leiomyoma of uterus; D25.0 Submucous leiomyoma of uterus; D25.2 Subserosal leiomyoma of uterus; E66.01 Morbid (severe) obesity due to excess calories; Z68.36 Body mass index [BMI] 36.0-36.9, adult
CPT/HCPCS: 58120; 36415; 36430; 80053; 83605; 84703; 85014; 85018; 85025; 85610; 85730; 86140; 86850; 86900; 86920; 88305; 93005; 96361; 96365; 96367; 99285; E0352; G0378; J0330; J0690; J1050; J1100; J2405; J2704; J3010; J7030; P9016

== ENCOUNTER 2020-11-14 13:08 | Outpatient (CLI) | payer SELFPAY ==
[2020-11-14 13:38] LABS: Basophils % 0.5 %; Eosinophils # 0.3 10^3/uL (0.0-0.8); Eosinophils % 3.3 %; Hemoglobin 9.6 g/dL (11.5-15.3); Lymphocytes # 2.1 10^3/uL (0.8-4.8); Lymphocytes % 28.1 %; Mean Corpuscular Hemoglobin 29.4 pg (28.0-34.0); Mean Platelet Volume 10.1 fL (7.4-10.4); Monocytes # 0.5 10^3/uL (0.2-0.9); Monocytes % 7.1 %; Neutrophils # 4.54 10^3/uL (1.8-7.7); Neutrophils % 60.9 %; Nucleated Red Blood Cells % 0 %; Platelet Count 281 10^3/cmm (130-400); Red Blood Count 3.26 10^6/uL (4.1-5.3); Red Cell Distribution Width 16.1 % (12.1-15.1); White Blood Count 7.5 10^3/uL (4.0-10.0)
== END 2020-11-14 13:09 | disposition home or self-care (01) ==
LOC: LAB 13:12
PROVIDERS: Visit Provider Obstetrics & Gynecology
DX: N93.9 Abnormal uterine and vaginal bleeding, unspecified (principal); D50.0 Iron deficiency anemia secondary to blood loss (chronic)
CPT/HCPCS: 36415; 85025

== ENCOUNTER 2020-12-10 15:37 | Observation (INO) | payer SELFPAY ==
--- NOTE | 2020-12-08 11:55 | ANES.PREANE2 ---
Pre-Anesthetic Assessment Pre-Anesthetic Assessment: Height/Weight: Height 1.68 m Weight 90.718 kg Preop Diagnosis: Abnormal uterine bleeding, uterine fibroid, anemia Proposed Procedure: Operation Date: 12/10/20 07:00 Proposed Procedures p Total Vaginal Hysterectomy 84324 N64.9 D25.9 N93.9(Not Applicable) - Yung Ray MD Familial anesthetic complications: None Social: Social History: No alcohol and No tobacco Exam: Pre-Anes Outpt Exam: alert, oriented x 3, clear to auscultation bilaterally and regular rate & rhythm Airway: Cervical ROM: WNL MP: 2 Dentition: False and Other CV/HEM: CV/HEM: Anemia Metabolic: Metabolic: DM (diet controlled) Anesthetic Plan: ASA status: 2 Anesthesia: General Risk of > 500 ml blood loss (7ml/kg in children): No PFSH Anesthesia PFSH: Medical History Abnormal uterine bleeding (AUB) Surgical History (Updated 12/08/20 @ 08:33 by Bebe Vargas RN) H/O tubal ligation S/P cholecystectomy S/P tonsillectomy Family History Father Diabetes Heart disease Mother Hypertension Stroke Denies family history of Colon cancer Ovarian cancer Clotting disorder Breast cancer Anesthesia complication Bleeding disorder Uterine cancer Thyroid condition Social History (Updated 12/08/20 @ 08:29 by Bebe Vargas RN) Smoking and tobacco status: never smoked Alcohol intake: never Substance/Drug Use: never History of recent travel: No Female Reproductive History: Date of last menstrual period: 12/08/20 Data Anesthesia CBC & Chem 7: 12/08/20 11:40 12/08/20 11:40 Cardiac Studies: No Data to Display
[2020-12-08 11:57] LABS: Basophils # 0.1 10^3/uL (0.0-0.1); Basophils % 0.7 %; Eosinophils # 0.3 10^3/uL (0.0-0.8); Eosinophils % 3.5 %; Hematocrit 33.9 % (37.0-47.0); Hemoglobin 10.7 g/dL (11.5-15.3); Lymphocytes # 2.4 10^3/uL (0.8-4.8); Lymphocytes % 32.8 %; Mean Corpuscular HGB Conc 31.6 g/dL (30.0-36.0); Mean Corpuscular Hemoglobin 28.4 pg (28.0-34.0); Mean Corpuscular Volume 89.9 fL (81-99); Monocytes # 0.5 10^3/uL (0.2-0.9); Monocytes % 6.5 %; Neutrophils # 4.06 10^3/uL (1.8-7.7); Neutrophils % 56.4 %; Nucleated Red Blood Cells % 0 %; Platelet Count 231 10^3/cmm (130-400); Red Blood Count 3.77 10^6/uL (4.1-5.3); Red Cell Distribution Width 13.9 % (12.1-15.1); White Blood Count 7.2 10^3/uL (4.0-10.0)
[2020-12-08 12:02] LABS: Add Urine Microscopic? YES; Bilirubin Urine Neg (Negative); Blood Urine 2+ (Negative); Glucose Urine UA Norm (Normal); Ketones Urine Negative (Negative); Leukocyte Esterase Urine Negative (Negative); Nitrate Urine Negative (Negative); Protein Urine Neg (Negative); Specific Gravity, Urine 1.005 (1.005-1.030); Urine Appearance Clear (CLEAR); Urine Color Straw (Yellow); Urobilinogen Urine Norm (Negative); pH Urine 5 (5-7)
[2020-12-08 12:09] LABS: Add Urine Culture? Yes; Bacteria Urine TRACE /hpf; Squamous Epithelial Cell Urine RARE /hpf (0-5)
[2020-12-08 12:53] LABS: Alanine Aminotransferase 79 U/L (0-33); Alkaline Phosphatase 56 IU/L (35-105); Aspartate Amino Transferase 36 U/L (0-32); Blood Urea Nitrogen 6 mg/dL (6-20); Calcium 8.5 mg/dL (8.5-10.5); Carbon Dioxide 22 mmol/L (22-29); Chloride 106 mmol/L (98-107); Globulin 2.8 g/dL (1.3-4.6); Glomerular Filtration Rate 108.6 mL/min (90-130); Glucose 127 mg/dL (65-115); Osmolality Calculated 287 mOsm/kg (285-295); Sodium 139 mmol/L (136-145); Total Bilirubin 0.4 mg/dL (0.15-1.2); Total Protein 6.8 g/dL (6.6-8.7)
[2020-12-09 03:25] LABS: OR HCG Qualitative Urine Negative (Negative)
[2020-12-10] VITALS (22 sets, daily range): BP systolic 92–154; BP diastolic 54–89; PULSE 54–79; RESP 12–20; TEMP 36.1–37.2; O2SAT 97–100
--- NOTE | 2020-12-10 10:32 | W.PM.OPSUD ---
Surgery/Procedure H&P Update DATE OF PROCEDURE: December 10, 2020 DATE H&P PERFORMED: 12/08/20 H&P UPDATE INFORMATION: I have reviewed H&P completed within last 30 days, I have examined patient prior to procedure and No changes to prior documentation PREOP DIAGNOSIS: Abnormal uterine bleeding, uterine fibroid, anemia PLANNED PROCEDURE: Operation Date: 12/10/20 12:10 Proposed Procedures p Total Vaginal Hysterectomy 02057 N64.9 D25.9 N93.9(Not Applicable) - Yung Ray MD
[2020-12-10] MEDS: sodium chloride 0.9% 500 ML IV (10:38)
[2020-12-10] MEDS: scopolamine 1.5 Patch 1 PATCH TRANSDERMA (10:39)
[2020-12-10] MEDS: enoxaparin 40 mg/0.4 mL Syringe SUBCUT (10:40)
[2020-12-10] MEDS: ceFOXitin 2,000 MG in sodium chloride 0.9% (plus) 50 ML 100 MG IV (11:05)
[2020-12-10 12:34] LABS: Hematocrit 27.1 % (37.0-47.0); Hemoglobin 8.6 g/dL (11.5-15.3)
--- NOTE | 2020-12-10 13:10 | PM.OP ---
Operative Report Date of procedure: December 10, 2020 Pre-op Diagnosis: Abnormal uterine bleeding, uterine fibroid, anemia Post-op diagnosis: same Pathology: uterus Surgeon: Yung Ray MD Anesthesia: General Estimated blood loss (mL): 1,300 Urine output (mL): 100 Complications: Bleeding Findings: Enlarged irregular uterus Condition: stable Disposition: PACU Brief History: 45-year-old female with a history of abnormal uterine bleeding unresponsive to medical management treated with multiple D&Cs and blood transfusions. Procedure: After informed consent and risks, benefits, indications and alternatives reviewed with the patient was taken to the operating room. The patient was placed in dorsal lithotomy position prepped, and draped in the usual sterile fashion. The pre-procedure timeout verifying the correct patient, procedure, site and side, could not requirements was performed and acknowledge by the OR team. A Orellana catheter was placed. A Bookwalter vaginal retractor was placed into the vagina in usual manner visualize the cervix. Cervix was grasped with a single tooth tenaculum and circumferentially infiltrated with 1% Xylocaine with epinephrine. Then cervix was circumferentially incised with bovie and the bladder was dissected off the pubovesical cervical fascia anteriorly with a sponge stick and Metzenbaum scissors. The anterior peritoneal reflection was identified and the anterior cul-de-sac was entered sharply with Metzenbaum scissors. The same procedure was performed posteriorly and a posterior colpotomy was made through the posterior cul-de-sac space without difficulty and the posterior blade of the Bookwalter vaginal retractor was advanced posteriorly into the cul-de-sac. At this time, the left and right uterosacral ligaments were isolated and ligated with 0 Vicryl. The Enseal device was placed over the uterosacral ligaments on either side and was then used in a serial fashion up through the cardinal ligaments bilaterally cross-clamped, cut, and sealed with the Enseal device. Finally, the uterine arteries were cross-clamped, cut, sealed and ligated with the Enseal device. Hemostasis was assured. The broad ligaments were then serially clamped, sealed and cut with the Enseal device on both sides. But the uterus could not be pulled down due to size and it was morcelated vaginally. Significant bleeding encountered, but Excellent hemostasis was visualized after both cornua were clamped, sealed and cut with the Enseal device. Then the pedicles were then suture ligated with excellent hemostasis. The uterus was excised morcelated and submitted for pathologic evaluation. No other abnormalities were noted in the pelvic cavity. The peritoneum was then closed in a pursestring fashion with 0 Vicryl suture. The vaginal cuff angles were closed with [id number] #0 Vicryl suture on both sides and transfixed with the ipsilateral cardinal and uterosacral ligaments. The remainder of the vaginal cuff was closed with #0 Vicryl in a running locked fashion. At this time, instruments were removed from the vagina at hemostasis assured. Orellana catheter showed yielding clear blue/green urine. The patient was taken out of dorsal lithotomy position and awakened from the general anesthesia. The patient tolerated the procedure well and was taken to the PACU recovery room in a stable condition. Sponge, lap, needle and instruments counts were correct x3.
--- NOTE | 2020-12-10 14:27 | ANE.PACU2 ---
Inpatient post-anesthesia follow up: Airway intact: Yes Vital signs: Temperature 98.0 F Pulse Rate 61 Respiratory Rate 16 Blood Pressure 123/72 Pulse Oximetry 100 Oxygen Delivery Me thod Room Air Oxygen Flow Rate 6 Fraction of Inspir ed Oxygen Hydration adequate: Yes Nausea and vomiting: No Pain level: 4 Mental status: Baseline
--- NOTE | 2020-12-10 14:47 | SUR.PHASEII ---
13:40 received pt. 13;52 2 units of blood started.14:45 report given to PRANAY.pt transported to floor.
[2020-12-10] MEDS: dextrose 5%-lactated ringers 1,000 ML 125 ML IV ×2 (16:08→23:49)
[2020-12-10] MEDS: ketorolac 30 mg/mL INJ IVP ×2 (16:08→22:00)
[2020-12-10] MEDS: docusate sodium 100 mg Capsule PO (17:33)
[2020-12-11 04:00] VITALS: BP 103/63; PULSE 60; RESP 16; TEMP 36.6; O2SAT 99
[2020-12-11] MEDS: ketorolac 30 mg/mL INJ IVP ×2 (04:13→10:28)
[2020-12-11 06:03] LABS: Hemoglobin 8.8 g/dL (11.5-15.3); Mean Corpuscular HGB Conc 31.4 g/dL (30.0-36.0); Mean Corpuscular Hemoglobin 28.1 pg (28.0-34.0); Mean Corpuscular Volume 89.5 fL (81-99); Mean Platelet Volume 11.6 fL (7.4-10.4); Platelet Count 160 10^3/cmm (130-400); Red Blood Count 3.13 10^6/uL (4.1-5.3); Red Cell Distribution Width 14.3 % (12.1-15.1); White Blood Count 9.7 10^3/uL (4.0-10.0)
[2020-12-11] MEDS: dextrose 5%-lactated ringers 1,000 ML 125 ML IV (08:00)
[2020-12-11] MEDS: multivitamin therapeutic Tablet 1 TAB PO (08:01)
[2020-12-11] MEDS: docusate sodium 100 mg Capsule PO (08:01)
[2020-12-11] MEDS: medroxyprogesterone 2.5 mg Tablet 5 MG PO (08:16)
--- NOTE | 2020-12-11 11:26 | P.DS_ITS ---
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 Felix 45-year-old female with a history of abnormal uterine bleeding unresponsive to medical management and uterine leiomyoma. Hospital Course Hospital Course Mrs. Zamudio 45-year-old female admitted for planned total vaginal hysterectomy due to abnormal uterine bleeding unresponsive to medical management and uterine leiomyoma. The total vaginal hysterectomy was performed, complicated by bleeding due to uterine size as she had to be morcellated to be able to be extracted through the vaginal canal. She received 2 unit of packed red blood cells postoperative. She is postoperative day 1, afebrile hemodynamically stable. Tolerating diet well. Ambulating without difficulty. No bleeding. Physical Exam Narrative: EXAM NARRATIVE: GA: Alert and oriented ?3. HEENT: WNL. Heart: Regular rate and rhythm. Lungs: Clear to auscultation bilaterally. Abdomen: Bowel sounds present, nontender. ESTHETICIAN/OWNER: Spotting. Extremities: No edema, no cyanosis, no calves pain. Urinary Catheter Management^: Orellana: Cath Placed During This Visit: yes Urinary Catheter Date of Insertion: 12/10/20 Urinary Catheter Time of Insertion: 11:16 Discharge Data Data Completed and Pending: Pending at discharge Category Date Time Status Pathology: Surgic al [PTH] Routine Pth 12/10/20 13:11 Ordered Labs from last 24 hours 12/11/20 12/10/20 12/08/20 05:37 12:22 11:40 WBC 9.7 RBC 3.13 L Hgb 8.8 L 8.6 L Hct 28.0 L 27.1 L MCV 89.5 MCH 28.1 MCHC 31.4 RDW 14.3 Plt Count 160 MPV 11.6 H Blood Type A Positive Rho(D) Type Positive / 4+ Antibody Screen Negative Crossmatch See Detail Vitals: Last Vital Signs Temp 97.9 F 12/11/20 04:00 Pulse 60 12/11/20 04:00 Resp 16 12/11/20 04:00 BP 103/63 12/11/20 04:00 Pulse Ox 99 12/11/20 04:00 Discharge Plan Discharge Patient Disposition: Home Condition: Stable Prescriptions: New ibuprofen 800 mg tablet 800 mg PO TID PRN (Reason: pain) Qty: 60 RF: 0 hydrocodone-acetaminophen 5-325 mg tablet 1 tab PO Q4H PRN (Reason: pain) Qty: 30 RF: 0 acetaminophen 325 mg capsule 325 mg PO Q4H PRN (Reason: fever or pain) Qty: 60 RF: 0 Continued ibuprofen 800 mg tablet 800 mg PO TID PRN (Reason: Pain) RF: 0 multivitamin Tablet 1 tab PO DAILY RF: 0 cinnamon bark [Cinnamon] 500 mg Capsule 500 mg PO DAILY PRN (Reason: Blood sugar) RF: 0 medroxyprogesterone [Provera] 10 mg tablet 5 mg PO DAILY Qty: 30 RF: 0 docusate sodium 50 mg Capsule 50 mg PO DAILY RF: 0 Vitamin D3 10 mcg (400 unit) Capsule 10 mcg PO DAILY RF: 0 Discharge Orders: Discharge Order (Routine); Ordered 12/11/20 Ordered By: Yung Ray Referrals: Yung Ray MD [Physician] - 2 weeks Discharge Diet: Usual diet Discharge Activity: Increase activity as tolerated Patient Instructions: Vaginal Hysterectomy (DC), Opioid Safety Activity Restrictions/Additional Instructions: 1. Please call [facility] on next working day to make your post-operative appointment in 2 weeks. 2. Please stay home until you come back to the clinic on first post-operative check up. 3. Please follow instructions on your medications CAREFULLY. 4. If you have abdominal incision, do not cover it unless dressing is necessary because of drainage. OK to shower, but avoid bath. Leave steri-strips until they fall off. If they are still on one week after surgery, you may remove them. 5. If you had vaginal surgery or vaginal repair, Dr. Rya may instruct you to take SITZ bath. 6. Yellow, blood tinged odorous vaginal discharge is usually normal after hysterectomy or vaginal surgeries. 7. No sexual intercourse, tampons, or douches until you are completely released from the post-operative care. 8. Avoid constipation by eating right and maybe using some Metamucil or Milk of Magnesia. 9. All prescription refills are given during the working hours. Please do no wait till it runs out. Call the clinic at [phone] before your medication runs out. The clinic will get in touch with your doctor to prescribe medications if necessary. 10. Please remain within 40 mile radius from our hospital because emergencies do happen now and then during the post-operative period. 11. If you have stairs at home, take one step at a time slowly and minimize the number of trips. It helps to stay in one floor for the next few days. No lifting except what you can lift by one hand until you are released from the post-operative care. 12. Driving is discouraged until you are well healed. It may be 3-4 weeks before you feel strong enough to drive. You should be able to turn and look through the rear window without pain and you should be able to push the brake pedal very hard without pain before you drive. No fast rules, but SAFETY should be your primary concern. DO NOT drive if you are on sedating medications such as narcotics. 13. Call the clinic (during working hours) to make urgent appointment or go to the Emergency room, if any of the following occurs: i. Vaginal bleeding becomes heavy, more than a period. ii. Incision becomes red and sore, or drains pus. iii. Your temperature is over 100.4 or you have chill. iv. IV site becomes red and swollen (a little ``knot?? is usually OK) v. Persistent nausea and vomiting vi. Persistent constipation or diarrhea vii. Rash or allergic reaction to medications. 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
--- NOTE | 2020-12-11 11:40 | PC.CHAP ---
Pastoral Care Encounter/Spiritual Assessment Type of Contact [] Declined public message service supervisor visit [] Patient/Family/Request visit [] Outpatient visit [] Follow-up visit [] Physician referral [] Code/Alert [x] Routine visit [] Staff referral [] Actively dying [] Patient sleeping [] Family support [] [] Out of room [] Palliative care [] [x] Receiving care in room [] Pre-surgical visit [] Trauma [] Long length of stay [] ICU visit [] Other: Relational/Emotional Strength [x] Patient feels connected with others/family/visitors/staff [] Distress [] Loneliness/isolation [] Abandonment Spirituality of Patient [x] Person of Shira [] Attends Moravian of their Shira [x] Believes in Prayer [] Reads Bible or Hindu materials [] There are Spiritual issues to be addressed Assistant Speech Language Pathologist Interventions [x] Prayer [x] Active listening [x] Non-anxious presence [x] Spiritual/emotional support [] Crisis/trauma care [x] Spiritual counseling [] Bereavement support [] Provided bereavement packet [] Provided Bible/devotional materials [] Provided toy/stuffed animal, coloring book to patient or family member [] Provided Communion [] Anointing/Lawtey [] Salvation [x] Completed spiritual assessment [] Other: Impact on Illness or Injury [] Angry [] Fearful [x] Anxious [] Often cries [] Exhaustion [] Unable to work [] Unable to attend rastafarian [] Unable to walk/stand [] Unable to read [] Unable to drive [] Unable to eat/drink [] Unable to sleep [] Unable to be with family [] Patient intubated [] Other: Summary had a histoydemy, feels good waiting to go home today ot tomorrow, her is with her Time spent with patient 10 mins
[2020-12-11 12:52] VITALS: BP 114/70; PULSE 52; RESP 18; TEMP 36.6; O2SAT 100
[2020-12-11] MEDS: ibuprofen 800 mg tablet PO (13:33)
--- NOTE | 2020-12-11 13:48 | PC.NURSE ---
Discharge instructions given to patient and , all questions answered. Removed IV catheter with tip intact. Patient tolerated well. Patient discharged at this time in stable condition.
[2020-12-11 13:50] VITALS: BP 114/70; PULSE 52; RESP 18; TEMP 36.6; O2SAT 100
== END 2020-12-11 13:50 | disposition home or self-care (01) ==
LOC: MEDSURG 20:03
PROVIDERS: Admitting Provider Obstetrics & Gynecology; Visit Provider Obstetrics & Gynecology
PROC: (CPT 58290; principal; 2020-12-10 12:00)
DX: N93.9 Abnormal uterine and vaginal bleeding, unspecified (principal); D25.9 Leiomyoma of uterus, unspecified; E11.9 Type 2 diabetes mellitus without complications
CPT/HCPCS: 58290; 36415; 36430; 80053; 81001; 81025; 84703; 85014; 85018; 85025; 85027; 86850; 86900; 86920; 87086; 88307; 96365; 96372; G0378; J0694; J1100; J1170; J1650; J1885; J2405; J2704; J2710; J3010; J3490; J7040; P9016; P9040; P9047

== ENCOUNTER 2024-07-01 12:21 | Emergency (ER) | payer SELFPAY ==
[2024-07-01] VITALS (18 sets, daily range): BP systolic 139–256; BP diastolic 86–141; PULSE 59–117; RESP 1–22; TEMP 36.9; O2SAT 93–98; BMI 40.3
--- NOTE | 2024-07-01 12:38 | XRR_ITS ---
PROCEDURE INFORMATION: Exam: XR Chest Exam date and time: 07/01/2024 12:51 PM Age: 49 years old Clinical indication: Chest pressure; Patient HX: Patient states that she has had chest pain off and on for a few weeks. Patient states she has felt generally unwell for at least four weeks. Patient states that the chest pain has gotten worse today. EMS gave the patient 3 sl nitro to help with the chest pain, her pain would subside when given a nitro but would return. EMS then placed 1 of nitropaste on the patient's left upper chest. TECHNIQUE: Imaging protocol: Radiologic exam of the chest. Views: 1 view. COMPARISON: No relevant prior studies available. FINDINGS: Lungs: Unremarkable. No consolidation. Pleural spaces: Unremarkable. No pleural effusion. No pneumothorax. Heart/Mediastinum: Unremarkable. No cardiomegaly. Bones/joints: Unremarkable. XR/XR chest 1V portable [id number] IMPRESSION: No acute findings.
--- NOTE | 2024-07-01 12:39 | ECG_ITS ---
[facility] Test Date: 2024-07-01 Pat Name: Pia Zamudio Department: Room: Gender: Female Batt Packer: : [id number] Requested By: Sharon James Order Number: [id number] Rico MD: Hola Starr M.D. Measurements Intervals [place] Rate: 81 P: 16 AK: 159 QRS: -25 QRSD: 89 T: 23 QT: 378 QTc: 441 Interpretive Statements SINUS RHYTHM WITH SINUS ARRHYTHMIA POSSIBLE RIGHT VENTRICULAR CONDUCTION DELAY [RSR (QR) IN V1/V2] POSSIBLE ANTERIOR MYOCARDIAL INFARCTION , OF INDETERMINATE AGE [30 ms Q WAVE IN V3/V4, OR R < 0.2 mV IN V4] Compared to ECG 11/08/2020 02:08:09 Myocardial infarct finding now present Electronically Signed On 07-01-2024 18:46:27 BENCH WORKER HOLLOW HANDLE by Hola Starr M.D. [email or web address]
[2024-07-01] MEDS: famotidine 20 mg/2 mL INJ 40 MG IVP (13:02)
[2024-07-01] MEDS: lidocaine 2% viscous 15 ML, aluminum-mag hydrox-simethicon 30 ML, sucralfate oral liq 1 GM PO (13:02)
[2024-07-01 13:16] LABS: Basophils % 0.3 %; Eosinophils % 0.4 %; Hematocrit 43.9 % (36-47); Lymphocytes # 1.3 10^3/uL (0.8-4.8); Lymphocytes % 11.9 %; Mean Corpuscular HGB Conc 34.2 g/dL (30-55); Mean Corpuscular Hemoglobin 29.8 pg (27-33); Mean Corpuscular Volume 87.3 fl (85-98); Mean Platelet Volume 10.3 fL (7.4-10.4); Monocytes # 0.7 10^3/uL (0.2-0.9); Monocytes % 6.8 %; Neutrophils # 8.53 10^3/uL (1.8-7.7); Neutrophils % 80.4 %; Nucleated Red Blood Cells % 0 %; Platelet Count 211 10^3/cmm (157-399); Red Blood Count 5.03 10^6/uL (3.85-5.65); Red Cell Distribution Width 11.9 % (12.1-15.1)
[2024-07-01 13:28] LABS: INR 0.92 (0.8-1.2)
[2024-07-01 13:31] LABS: D Dimer 0.89 ug/mLFEU (0-0.59)
[2024-07-01 13:40] LABS: Troponin(5th) Baseline < 6 ng/L (0-10)
[2024-07-01 13:45] LABS: Alanine Aminotransferase 47 U/L (0-33); Albumin Level 4.3 g/dL (3.5-5.2); Alkaline Phosphatase 57 U/L (35-105); Anion Gap 12.8 (5-19); Aspartate Amino Transferase 26 U/L (0-32); Blood Urea Nitrogen 7 mg/dL (6-20); Calcium 9.8 mg/dL (8.5-10.5); Carbon Dioxide 28 mmol/L (22-29); Chloride 99 mmol/L (98-107); Creatinine Clr Calc Pharmacy 175.8179; Globulin 2.3 g/dL (1.3-4.6); Glomerular Filtration Rate 131.7 mL/min (90-130); Glucose 127 mg/dL (65-115); Lipase 21 U/L (13-60); NT Pro B Type Natriuretic Pept 191 pg/mL (0-125); Osmolality Calculated 282 mOsm/kg (285-295); Potassium 3.8 mmol/L (3.5-5.1); Sodium 136 mmol/L (136-145); Total Protein 6.6 g/dL (6.6-8.7)
--- NOTE | 2024-07-01 13:45 | CTR_ITS ---
PROCEDURE INFORMATION: Exam: CTA Chest With Contrast Exam date and time: 07/01/2024 2:10 PM Age: 49 years old Clinical indication: Abdominal pain; Chest pressure; Prior surgery; Surgery date: 6+ months; Surgery type: Hysto; Additional info: Cp, SOB TECHNIQUE: Imaging protocol: Computed tomographic angiography of the chest with contrast. Exam focused on the arteries. 3D rendering (Not supervised by radiologist): MIP and/or 3D reconstructed images were created by the technologist. Radiation optimization: All CT scans at this facility use at least one of these dose optimization techniques: automated exposure control; mA and/or kV adjustment per patient size (includes targeted exams where dose is matched to clinical indication); or iterative reconstruction. Contrast material: OMNI 350; Contrast volume: 100 ml; Contrast route: INTRAVENOUS (IV); COMPARISON: CR (CHEST, ) 07/01/2024 12:51 PM RADIATION DOSE METRICS: Total DLP (mGy-cm): 1264.11 FINDINGS: Pulmonary arteries: Normal. No pulmonary emboli. Aorta: Unremarkable. No aortic aneurysm. No aortic dissection. Thymus: Minimal residual thymic tissue is present Lungs: There are scattered calcified granulomas. No consolidating infiltrates Pleural spaces: Unremarkable. No pneumothorax. No pleural effusion. Heart: Unremarkable. No cardiomegaly. No pericardial effusion. Lymph nodes: Calcified mediastinal and hilar lymph nodes are noted. No pathologically enlarged lymph nodes. Bones/joints: There are [id number] degenerative changes of the thoracic spine Soft tissues: Unremarkable. PROCEDURE INFORMATION: Exam: CT Abdomen And Pelvis With Contrast Exam date and time: 07/01/2024 2:10 PM Age: 49 years old Clinical indication: Abdominal pain; Chest pressure; Prior surgery; Surgery date: 6+ months; Surgery type: Hysto; Additional info: Cp, SOB TECHNIQUE: Imaging protocol: Computed tomography of the abdomen and pelvis with contrast. Radiation optimization: All CT scans at this facility use at least one of these dose optimization techniques: automated exposure control; mA and/or kV adjustment per patient size (includes targeted exams where dose is matched to clinical indication); or iterative reconstruction. Contrast material: OMNI 350; Contrast volume: 100 ml; Contrast route: INTRAVENOUS (IV); COMPARISON: US transvaginal [id number] 07/10/2020 3:32 PM RADIATION DOSE METRICS: Total DLP (mGy-cm): 1264.11 FINDINGS: Liver: There is hepatomegaly and diffuse fatty infiltration of the liver. No focal hepatic lesions. Gallbladder and biliary ducts: The gallbladder is absent. No significant biliary ductal dilatation. Pancreas: Normal. No ductal dilation. Spleen: Normal. No splenomegaly. Adrenal glands: Normal. No mass. Kidneys and ureters: Normal. No hydronephrosis. Stomach and bowel: Unremarkable. No obstruction. No mucosal thickening. Appendix: No evidence of appendicitis. Intraperitoneal space: Unremarkable. No free air. No significant fluid collection. Vasculature: Unremarkable. No abdominal aortic aneurysm. Lymph nodes: Unremarkable. No enlarged lymph nodes. Urinary bladder: The bladder is moderately distended but otherwise appears unremarkable. Reproductive: There are simple cysts/follicles within the right adnexa, likely physiologic in nature. Bones/joints: There is mild sclerosis of the bilateral SI joints, greater on the right. No erosive changes. No acute fracture. Soft tissues: There is laxity of the anterior abdominal wall. There are superficial venous varicosities within the anterior pelvic wall CT/CT angio chest w abd pel w con IMPRESSION: 1. No acute abnormality. 2. Sequelae of remote granulomatous infection. IMPRESSION: 1. No acute abnormality. 2. Hepatomegaly and diffuse fatty infiltration of the liver 3. Previous cholecystectomy
[2024-07-01] MEDS: iohexol 350 mg/mL 500 mL Btl (per mL) IV (14:08)
--- NOTE | 2024-07-01 14:32 | ED_ITS ---
HPI - Chest Pain 2 General: Chief Complaint: Chest Pain Stated Complaint: CHEST PAIN Time Seen by Provider: 07/01/24 12:22 History of Present Illness: This patient is a 49-year-old [place]. She presents by EMS today for chest pain and shortness of breath. She says that about 4 weeks ago she was sick with a viral type infection. That seemed to improve and then a few days later she and episode of severe weakness and shortness of breath. She did not really have chest pain with that episode. She says that since then she has not felt back to normal. She will have some days that she feels fairly well and other days when she feels very weak and out of breath. She has had chest pain fairly constantly today. It radiates into her shoulders and back. She has had her gallbladder removed in the past. She has also had a hysterectomy. It sounds like maybe she has had some episodes of hypertension but has never been on medication for it. She has had problems with irritation in her stomach. Her says that approximately a year ago she had endoscopy and colonoscopy and they reported some irritation or erosions in her stomach. She does not think this really feels the same. She has had some nausea, no vomiting. Appetites been decreased. She has had some constipation alternating with diarrhea. She denies urinary symptoms. No fevers. No black stools. She also has a history of a DVT in her left leg about 10 years ago. She is not on any blood thinners. She thinks that her mother probably had heart problems but she is not sure of other family history. Risk Factors: Coronary artery disease risk factors: hypertension and family history of CAD before age 50 Pulmonary embolism risk factors: history of deep vein thrombosis Related Data Home Medications Medication Instructions Recorded Confirmed multivitamin 1 tab PO DAILY 11/08/20 07/03/24 lactobacillus combination no.4 3 3,000 mmu cells PO DAILY 12/22/20 07/03/24 billion cell capsule (Probiotic) Previous Rx's Medication Instructions Recorded metoprolol tartrate 25 mg tablet 25 mg PO DAILY #30 tabs 07/01/24 valsartan 80 mg tablet (Diovan) 80 mg PO DAILY #30 tabs 07/03/24 Allergies Allergy/AdvReac Type Severity Reaction Status Date / Time No Known Allergies Allergy Verified 07/03/24 16:11 COUNTS INCLUDE 234 BEDS AT THE [facility] ED 2 PFSH: Medical History Aftercare following surgery of the genitourinary system Abnormal uterine bleeding (AUB) Surgical History (Updated 07/03/24 @ 16:49 by Silvia Najera MA) H/O dilation and curettage 11/08/2020- D&C performed by Dr. Koehler at [facility] S/P tonsillectomy S/P cholecystectomy H/O tubal ligation Family History Father Diabetes Heart disease Mother Hypertension Stroke Denies family history of Colon cancer Ovarian cancer Clotting disorder Breast cancer Anesthesia complication Bleeding disorder Uterine cancer Thyroid disease Social History (Updated 07/03/24 @ 16:49 by Silvia Najera MA) Smoking and tobacco/nicotine status: never used tobacco/nicotine Alcohol intake: never Substance/Drug Use: never Adopted: No Caregiver/support person: No Lives independently: Yes Household members: spouse, family and children Housing: House Marital status: Number of children: 8 service: No Current occupational status: unemployed Current occupational exposures/hazards: No Pets and animals: Yes History of recent travel: No Do you think of yourself as: Straight/Heterosexual Current gender identity: Female Physical Exam 2 Const: COMMON NORMALS: patient oriented x3, no limitations and alert G ENERAL APPEARANCE: cooperative OTHER: Appears uncomfortable HENMT: HEAD & SCALP: normal to inspection FACE & SINUS: normal facial exam Eye: GENERAL EYE: appearance normal, both eyes and all related structures Neck/C-Spine: COMMON NORMALS: supple, no meningeal signs and no JVD Chest: COMMONS NORMALS: normal inspection of the chest Resp: COMMON NORMALS: normal respiratory effort, No use of accessory muscles and clear to auscultation bilaterally AUSCULTATION: clear to auscultation bilaterally Cardio: COMMON NORMALS: no JVD, regular rate, regular rhythm and No murmurs present (Cardio) RATE: regular rate RHYTHM: regular rhythm GI: OTHER: Obese, diffuse mild tenderness. Normal bowel sounds. Back/Pelvis: COMMON NORMALS: thoracic and lumbar spine normal to inspection Extremity: COMMON NORMALS: normal to inspection OTHER: No edema or tenderness of either lower extremity. No calf tenderness. Neuro: COMMON NORMALS: patient oriented x3, moves all extremities, no focal motor deficits and no sensory deficits noted SENSORIUM/ORIENTATION: Yes alert MENINGEAL SIGNS: Yes no meningeal signs Psych: COMMON NORMALS: mental status grossly normal, cooperative and normal affect Skin: COMMON NORMALS: no rashes or lesions noted and turgor normal GENERAL SKIN EXAM: no rashes or lesions noted and turgor normal Course 2 Vital Signs: Vital signs: Vital Signs Temperature 98.5 F 07/01/24 12:32 Pulse Rate 59 L 07/01/24 18:45 Respiratory Rate 15 07/01/24 17:20 Blood Pressure 156/101 07/01/24 18:45 Pulse Oximetry 94 07/01/24 18:45 MDM - Chest Pain Medical Decision Making Patient with some risk factors for cardiac disease. Her episode of shortness of breath and weakness a month ago followed by ongoing symptoms which come and go is concerning. She does note that these symptoms are worse with activity. The symptoms also could be GI related. She does not have her gallbladder but she has had some problems with gastric erosions or irritation. She also has a history of a DVT and certainly could have had a PE that is causing all her symptoms. EKG was nondiagnostic, x-ray was unremarkable. CT of the chest and abdomen pelvis is pending. Troponin is negative. She was given a GI cocktail and had been given aspirin and nitro by EMS. Patient complained of a worsening headache. The Nitropaste was removed and this did seem to help somewhat. Her blood pressure also got significantly elevated throughout the ER stay. At 1 point it was documented at well over 200 systolic although I am not sure that was a valid blood pressure. There have been multiple readings in the 1 70-1 90 range however and I do believe that is accurate. CT of the chest abdomen pelvis did not show a PE or any other concerning findings to explain her pain. She does have a fatty liver. LFTs are slightly elevated but actually improved from previous lab evaluations. She was given medications to help with the blood pressure and anxiety. Given the negative workup I think she will be okay to go home. I will start her on some blood pressure medicine. She will also take her medicine for her reflux. She will make an appointment to follow-up with the [facility] to establish primary care. Lab Data 07/01/24 12:50 07/01/24 12:50 Radiology Impressions Chest X-Ray 07/01/24 12:38 IMPRESSION: No acute findings. Chest/Abdomen/Pelvis CT 07/01/24 13:45 IMPRESSION: 1. No acute abnormality. 2. Sequelae of remote granulomatous infection. IMPRESSION: 1. No acute abnormality. 2. Hepatomegaly and diffuse fatty infiltration of the liver 3. Previous cholecystectomy Laboratory Results WBC 10.60 10^3/uL (3.29-11.43) 07/01/24 12:50 RBC 5.03 10^6/uL (3.85-5.65) 07/01/24 12:50 Hgb 15.00 g/dL (11.27-16.99) 07/01/24 12:50 Hct 43.9 % (36-47) 07/01/24 12:50 MCV 87.3 fl (85-98) 07/01/24 12:50 MCH 29.8 pg (27-33) 07/01/24 12:50 MCHC 34.2 g/dL (30-55) 07/01/24 12:50 RDW 11.9 % (12.1-15.1) L 07/01/24 12:50 Plt Count 211 10^3/cmm (157-399) 07/01/24 12:50 MPV 10.3 fL (7.4-10.4) 07/01/24 12:50 Neut % (Auto) 80.4 % 07/01/24 12:50 Lymph % (Auto) 11.9 % 07/01/24 12:50 Gilmer % (Auto) 6.8 % 07/01/24 12:50 Eos % (Auto) 0.4 % 07/01/24 12:50 Baso % (Auto) 0.3 % 07/01/24 12:50 Neut # (Auto) 8.53 10^3/uL (1.8-7.7) H 07/01/24 12:50 Lymph # (Auto) 1.3 10^3/uL (0.8-4.8) 07/01/24 12:50 Gilmer # (Auto) 0.7 10^3/uL (0.2-0.9) 07/01/24 12:50 Eos # (Auto) 0.0 10^3/uL (0.0-0.8) 07/01/24 12:50 Baso # (Auto) 0.0 10^3/uL (0.0-0.1) 07/01/24 12:50 Nucleated RBC % (auto) 0 % 07/01/24 12:50 Nucleated RBCs # 0.0 /100WBC 07/01/24 12:50 PT 12.70 SECONDS (12.1-14.9) 07/01/24 12:50 INR 0.92 (0.8-1.2) 07/01/24 12:50 D-Dimer 0.89 ug/mLFEU (0-0.59) H 07/01/24 12:50 Sodium 136 mmol/L (136-145) 07/01/24 12:50 Potassium 3.8 mmol/L (3.5-5.1) 07/01/24 12:50 Chloride 99 mmol/L (98-107) 07/01/24 12:50 Carbon Dioxide 28 mmol/L (22-29) 07/01/24 12:50 Anion Gap 12.8 (5-19) 07/01/24 12:50 BUN 7 mg/dL (6-20) 07/01/24 12:50 Creatinine 0.5 mg/dL (0.5-0.9) 07/01/24 12:50 GFR Calculation 131.7 mL/min (90-130) H 07/01/24 12:50 Glucose 127 mg/dL (65-115) H 07/01/24 12:50 Calculated Osmolality 282 mOsm/kg (285-295) L 07/01/24 12:50 Calcium 9.8 mg/dL (8.5-10.5) 07/01/24 12:50 Total Bilirubin 1.0 mg/dL (0.15-1.2) 07/01/24 12:50 AST 26 U/L (0-32) 07/01/24 12:50 ALT 47 U/L (0-33) H 07/01/24 12:50 Alkaline Phosphatase 57 U/L (35-105) 07/01/24 12:50 Troponin T Baseline < 6 ng/L (0-10) 07/01/24 12:50 Troponin T 120 Minute 7.16 ng/L (0-10) 07/01/24 14:57 Delta Troponin T 1.06754 ABS# (0-10) 07/01/24 14:57 Troponin T Hi Sens 6Hr 6.03 ng/L (0-10) 07/01/24 18:21 Troponin T Hi Sens 6Hr Delta 0.23453 ng/L (0-12) 07/01/24 18:21 NT-Pro-B Natriuret Pep 191 pg/mL (0-125) H 07/01/24 12:50 Total Protein 6.6 g/dL (6.6-8.7) 07/01/24 12:50 Albumin 4.3 g/dL (3.5-5.2) 07/01/24 12:50 Globulin 2.3 g/dL (1.3-4.6) 07/01/24 12:50 Lipase 21 U/L (13-60) 07/01/24 12:50 All radiology interpretation(s) finalized by discharge Discharge Plan Discharge Patient Disposition: Home Clinical Impression: Atypical chest pain, Hypertension, Hx of esophageal reflux Condition: Stable Prescriptions: New metoprolol tartrate 25 mg tablet 25 mg PO DAILY Qty: 30 0RF No Action Probiotic 3 billion cell capsule 3,000 mmu cells PO DAILY Rx Instructions: administer with a meal valsartan [Diovan] 80 mg tablet 80 mg PO DAILY Qty: 30 2RF multivitamin Tablet 1 tab PO DAILY Discharge Orders: Discharge ED (Routine); Ordered 07/01/24 Ordered By: Sharon Richards Patient Instructions: Opioid Safety, Pain Management Activity Restrictions/Additional Instructions: Take the metoprolol for blood pressure. Take this daily until you can see the primary care provider at the [facility]. Return to the emergency room if you have further symptoms of chest pain or shortness of breath. Take something for acid reflux for the next few weeks to see if that helps as well. Coding Level of Care Code ED Workers Compensation Claims Adjuster for Burton Holcomb
--- NOTE | 2024-07-01 14:39 | ECG_ITS ---
[employer] - 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 Measurements Intervals [place] Rate: 78 P: 44 [place]: 174 QRS: -31 QRSD: 95 T: 28 QT: 396 QTc: 451 Interpretive Statements SINUS RHYTHM LEFT AXIS DEVIATION [QRS AXIS < -30] POSSIBLE RIGHT VENTRICULAR CONDUCTION DELAY [RSR (QR) IN V1/V2] POSSIBLE ANTERIOR MYOCARDIAL INFARCTION , OF INDETERMINATE AGE [30 ms Q WAVE IN V3/V4, OR R < 0.2 mV IN V4] Compared to ECG 07/01/2024 12:27:16 Left-axis deviation now present Sinus arrhythmia no longer present Myocardial infarct finding still present Electronically Signed On 07-01-2024 18:58:49 BOTTOM SANDER by Hola Starr M.D. [email or web address]
[2024-07-01 15:18] LABS: Troponin 5 2HR 7.16 ng/L (0-10); Troponin 5 2HR Delta 1.16001 ABS# (0-10)
[2024-07-01] MEDS: LORazepam 2 mg/mL INJ 1 mL 0.5 MG IVP (17:22)
[2024-07-01] MEDS: metoprolol tartrate 1 mg/1 mL SDV 5 mL 5 MG IVP (18:09)
[2024-07-01 18:47] LABS: Troponin 5 6HR 6.03 ng/L (0-10); Troponin 5 6HR Delta 0.03001 ng/L (0-12)
== END 2024-07-01 18:47 | disposition home or self-care (01) ==
PROVIDERS: Emergency Provider Emergency Medicine
DX: R07.89 Other chest pain (principal); R06.02 Shortness of breath
CPT/HCPCS: 36415; 71045; 71275; 74177; 80053; 83690; 83880; 84484; 85025; 85378; 85610; 93005; 96374; 96375; 99285; J2060; J3490

== ENCOUNTER → 2024-07-03 16:45 | Outpatient (BNVA) | payer SELFPAY | PROVIDERS: PCP Nurse Practitioner; Visit Provider Nurse Practitioner | DX: I10 Essential (primary) hypertension (principal); D50.0 Iron deficiency anemia secondary to blood loss (chronic) | CPT/HCPCS: 80061; 81003; 84443; 87086 ==

== ENCOUNTER → 2024-07-17 16:49 | Outpatient (BNVA) | payer SELFPAY | PROVIDERS: PCP Nurse Practitioner; Visit Provider Nurse Practitioner | DX: R73.9 Hyperglycemia, unspecified (principal); R74.01 Elevation of levels of liver transaminase levels; I10 Essential (primary) hypertension | CPT/HCPCS: 83036; 86705; 86706; 86709; 86803; 87340 ==

== ENCOUNTER → 2025-04-10 08:22 | Outpatient (BNVA) | payer SELFPAY | PROVIDERS: PCP Nurse Practitioner; Visit Provider Nurse Practitioner | DX: E11.9 Type 2 diabetes mellitus without complications (principal); E11.65 Type 2 diabetes mellitus with hyperglycemia | CPT/HCPCS: 80053; 80061; 83036 ==